=== PATIENT | female | born 1960 | race Hispanic/Latino ===

== ENCOUNTER 2022-02-18 08:19 | Emergency (ER) | payer BC ==
[~2022-02-18] VITALS: Ht 172.7 cm; Wt 135.2 kg
[2022-02-18 08:56] LABS: APPEARANCE,URINE Clear (CLEAR); BILIRUBIN,URINE Negative (NEGATIVE); COLOR,URINE Yellow (YELLOW); GLUCOSE, URINE (UA) Negative (NEGATIVE); KETONES,URINE Negative (NEGATIVE); LEUKOCYTE ESTERASE ,URINE Negative (NEGATIVE); NITRATE,URINE Negative (NEGATIVE); OCCULT BLOOD,URINE Trace (NEGATIVE); PROTEIN,URINE 300 mg/dL (NEGATIVE)
[2022-02-18 08:58] LABS: BASOPHILS % (AUTO) 0.5 % (0.0-5.0); EOSINOPHILS % (AUTO) 0.8 % (0.0-8.0); HEMATOCRIT 40.4 % (36-48); LYMPHOCYTES % (AUTO) 16.3 % (21.0-51.0); MEAN CORPUSCULAR HGB CONC 30.9 g/dL (32.0-36.0); MEAN CORPUSCULAR VOLUME 84.2 fL (79-99); MONOCYTES % (AUTO) 6.3 % (3.0-13.0); NEUTROPHILS % (AUTO) 75.3 % (40.0-77.0); PLATELET COUNT (AUTO) 265 K/uL (130-400); RED CELL DISTRIBUTION WIDTH 15.5 % (11.0-15.5); WHITE BLOOD COUNT (AUTO) 10.5 K/uL (4.8-10.8)
[2022-02-18] MEDS ORDERED: NIFEDIPINE 10 MG CAP PO ONE (09:00)
[2022-02-18 09:07] LABS: BACTERIA,URINE Rare /HPF (None Seen); MUCUS,URINE Few LPF (None Seen); WBC,URINE None Seen /HPF (0-1)
[2022-02-18 09:13] LABS: ALBUMIN 3.4 g/dL (3.5-5.0); BILIRUBIN,TOTAL 0.4 mg/dL (0.2-1.0); CREATININE 0.6 mg/dL (0.5-1.5); POTASSIUM 3.7 mmol/L (3.5-5.1); TOTAL PROTEIN, SERUM 7.8 g/dL (6.0-8.3)
[2022-02-18] MEDS ORDERED: OLME1TAB9 PO (10:05)
[2022-02-18 10:40] VITALS: BP 141/56
== END 2022-02-18 10:38 | disposition home or self-care (01) ==
LOC: EDH 08:19
DX: I10 Essential (primary) hypertension (principal); J45.909 Unspecified asthma, uncomplicated; E78.00 Pure hypercholesterolemia, unspecified; Z98.890 Other specified postprocedural states
CPT/HCPCS: 36415; 80053; 81001; 84484; 85025; 93005

== ENCOUNTER → 2023-06-13 | Outpatient (CLI) | payer OTHER ==
[~2023-06-13] MED LIST: OLME-39 PO
== END | disposition home or self-care (01) ==
LOC: RAH 09:57
PROVIDERS: ATTEND Internal Medicine Cardiovascular Disease
DX: Z13.6 Encounter for screening for cardiovascular disorders (principal)
CPT/HCPCS: 75571